=== PATIENT | male | born 1955 | race Caucasian/White ===

== ENCOUNTER 2017-03-06 07:57 | Inpatient (IN) | payer MEDICAID ==
[2017-03-06 08:38] LABS: % IMMATURE GRANULYOCYTES 0.6 % (0.0-1.1); ABSOLUTE IMMATURE GRANULOCYTES 0.03 10^3/uL (0.00-0.10); ABSOLUTE NRBC COUNT 0.02 10^3/uL (0-0.01); ADD DIFF? NO; ADD MORPH? NO; ADD SCAN? NO; ATYPICAL LYMPHOCYTE FLAG 0 (0-99); FRAGMENT RBC FLAG 0 (0-99); HEMATOCRIT 37.2 % (40.0-51.0); HEMOGLOBIN 12.2 g/dL (13.7-17.5); LEFT SHIFT FLG 0 (0-99); LIPEMIA HEMOLYSIS FLAG 80 (0-99); MEAN CELL HEMOGLOBIN CONCENTR. 32.8 g/dL (32.4-36.7); MEAN CELL VOLUME 100.5 fL (81.5-99.8); NRBC-AUTO% 0.4 % (0.0-0.2); PLATELET CLUMPS FLAG 0 (0-99); PLATELET COUNT 183 10^3/uL (150-400); RED CELL DISTRIBUTION WIDTH 15.9 % (11.5-15.2)
[2017-03-06] MEDS ORDERED: NS 1,000 ML IV ONE ×2 (08:40→10:40)
[2017-03-06 09:07] LABS: ALANINE AMINOTRANSFERASE 194 IU/L (21-72); ALKALINE PHOSPHATASE 144 IU/L (38-126); ANION GAP 25 mEq/L (8-16); ASPARTATE AMINOTRANSFERASE 404 IU/L (17-59); BILIRUBIN,TOTAL 1.8 mg/dL (0.1-1.4); CALCIUM 8.5 mg/dL (8.5-10.4); CARBON DIOXIDE 17 mEq/l (22-31); CHLORIDE 96 mEq/L (97-110); GLOMERULAR FILTRATION RATE 7; GLUCOSE 160 mg/dL (70-100); POTASSIUM 4.1 mEq/L (3.5-5.2); SODIUM 138 mEq/L (134-144); TOTAL PROTEIN 6.9 g/dL (6.3-8.2)
--- NOTE | 2017-03-06 09:08 | EDPHY ---
H & P Stated Complaint: diarrhea x 3 days, rectal itching Source: Patient Exam Limitations: No limitations - Personal History Current Tetanus/Diphtheria Vaccine: Unsure Current Tetanus Diphtheria and Acellular Pertussis (TDAP): Unsure Tetanus Vaccine Date: 2010 - Medical/Surgical History Hx Asthma: No Hx Chronic Respiratory Disease: No Hx Diabetes: Yes Hx Cardiac Disease: No Hx Renal Disease: No Hx Cirrhosis: No Hx Alcoholism: No Hx HIV/AIDS: No Hx Splenectomy or Spleen Trauma: No Other PMH: DM2 , HTN. etoh - Social History Smoking Status: Former smoker Time Seen by Provider: 03/06/17 08:26 HPI/ROS: CHIEF COMPLAINT: diarrhea HISTORY OF PRESENT ILLNESS: 61-year-old male presents to the emergency department complaining of rectal itching and diarrhea for the past 4 days up to 20 episodes daily. Patient reports this started with vomiting. Patient reports he feels a rectal throbbing, has a bowel movement which is diarrhea and feels much better temporarily. Patient reports great relief with wiping with toilet paper as he has so much itching. Patient unsure of history hemorrhoids. He reports his diarrhea is brown and sometimes black. No bright red blood. Patient denies chest pain or shortness of breath, no lightheadedness or dizziness. Patient admits to drinking almost 1 L of rum daily, last drink was last night. Patient reports he is taking his medication as prescribed, he is not taking NSAIDs or antiplatelets. He tripped and fell in his kitchen 5 days ago and has a bruise to his left leg. He denies head strike and no pain in this area. Patient reports he has been urinating more than usual. REVIEW OF SYSTEMS: A comprehensive 10 point review of systems is otherwise negative aside from elements mentioned in the history of present illness. (Kya Parker) - Physical Exam Exam: Physical Exam Gen: Alert and Oriented, NAD HEENT: PERRL, moist mucous membranes NECK: no meningismus CV: regular rate and regular rhythm PULM: CTAB, no wheezes ABDOMEN: Obese, soft, mild diffuse tenderness to palpation, BS present BACK: No CVA tenderness NEURO: Neurologically grossly intact EXTREMITIES: Left hip with full range of motion SKIN: Large area of ecchymosis to left lateral hip, nontender to palpation PSYCH: answers questions appropriately. (Kya Parker) Constitutional: Initial Vital Signs Temperature (C) 37.0 C 03/06/17 08:06 Heart Rate 128 H 03/06/17 08:06 Respiratory Rate 16 03/06/17 08:06 Blood Pressure 124/87 H 03/06/17 08:06 O2 Sat (%) 98 03/06/17 08:06 O2 Delivery Mode Room Air Allergies/Adverse Reactions: caffeine Allergy (Verified 07/06/14 12:14) Home Medications: Medication Instructions Recorded Losartan/Hydrochlorothiazide 1 tab PO DAILY 07/06/14 [Hyzaar 100-25 Tablet] Atorvastatin Calcium [Lipitor 40 40 mg PO DAILY 03/06/17 mg (*)] Cholecalciferol Vit D3 [Vitamin D3 1,000 units PO DAILY 03/06/17 (*)] metFORMIN HCL [Glucophage 500 mg 500 mg PO BIDMEAL 03/06/17 (*)] Medical Decision Making ED Course/Re-evaluation: IV established, CBC, chemistry panel, urinalysis obtained. CBC shows a normal white blood cell count, H&H are 12.2 and 37.2, chemistry panel shows a creatinine of 8.1 with elevated LFTs and lipase of 1400. Patient is given 1 L of normal saline. Patient was able to urinate 50 mL as of dark urine, Jones catheter was placed with minimal postvoid residual. Patient is given a 2nd L of normal saline. He will be admitted to hospitalist for his diarrhea and acute kidney injury. I have spoken with Dr. Sean Frye who accepts this admission. (Kya Parker) Other Provider: Independent physician documentation I evaluated and participated in the management of the patient. I also evaluated the patient independently. My co-signature indicates that I have reviewed this chart and I agree with the findings and plan of care as documented. My personal H&P findings include: The patient presents to the ED with several days of diarrhea. The patient does have a history of sporadic binge drinking. He has been drinking heavily for the past several days. PHYSICAL EXAMINATION General Appearance: Alert, no distress Eyes: Pupils equal and round no pallor or injection ENT, Mouth: Mucous membranes moist Respiratory: There are no retractions, lungs are clear to auscultation Cardiovascular: Regular rate and rhythm Gastrointestinal: Abdomen is soft and nontender, no masses, bowel sounds normal Neurological: A&O, normal motor function, normal sensory exam, normal cranial nerves Skin: Bruising noted to left hip, normal range of motion Musculoskeletal: Neck is supple nontender Extremities: symmetrical, full range of motion Psychiatric: Patient is oriented X 3, there is no agitation The patient presents to the ED with acute renal failure from presumed GI losses , ARB use and his history of diabetes. The patient had a Jones catheter placed. He had no significant urinary retention. The patient received 2 L of normal saline. The patient will require admission to the hospitalist service. The patient will be admitted to a monitored bed this evening. He was evaluated by Dr. Sean Frye in the emergency department. (Sorin Martin) - Data Points Laboratory Results: Laboratory Results 03/06/17 08:30 03/06/17 08:30 03/06/17 03/06/17 03/06/17 09:55 09: 08:30 WBC RBC Hgb Hct MCV MCH MCHC RDW Plt Count MPV Neut % (Auto) Lymph % (Auto) Arthur % (Auto) Eos % (Auto) Baso % (Auto) Nucleat RBC Rel Count Absolute Neuts (auto) Absolute Lymphs (auto) Absolute Monos (auto) Absolute Eos (auto) Absolute Basos (auto) Absolute Nucleated RBC Immature Gran % Immature Gran # Sodium Potassium Chloride Carbon Dioxide Anion Gap BUN Creatinine Estimated GFR Glucose Calcium Total Bilirubin Conjugated Bilirubin Unconjugated Bilirubin AST ALT Alkaline Phosphatase Total Protein Albumin Lipase Urine Color PADMINI Urine Appearance MODERATELY TURBID Urine pH 5.0 (5.0-7.5) Ur Specific [place] 1.023 (1.002-1.030) Urine Protein 3+ H (NEGATIVE) Urine Ketones TRACE H (NEGATIVE) Urine Blood 1+ H (NEGATIVE) Urine Nitrate NEGATIVE (NEGATIVE) Urine Bilirubin POSITIVE H (NEGATIVE) Urine Urobilinogen NEGATIVE EU EU (0.2-1.0) Ur Leukocyte Esterase NEGATIVE (NEGATIVE) Urine RBC NONE SEEN /hpf /hpf (0-3) Urine WBC 1-3 /hpf /hpf (0-3) Ur Epithelial Cells TRACE /lpf /lpf (NONE-1+) Hyaline Casts 25-50 /lpf H /lpf (0-1) Granular Casts 15-25 /lpf H /lpf (0-1) Urine Mucus TRACE /lpf /lpf (NONE-1+) Urine Glucose NEGATIVE (NEGATIVE) Stool Concentration TNP Stool Occult Bld Scrn POSITIVE H (NEGATIVE) Stool Ova & Parasites TNP Parasite Trichrome TNP Direct Microscop Exam TNP 03/06/17 03/06/17 08:30 08:30 WBC 4.71 10^3/uL 10^3/uL (3.80-9.50) RBC 3.70 10^6/uL L 10^6/uL (4.40-6.38) Hgb 12.2 g/dL L g/dL (13.7-17.5) Hct 37.2 % L % (40.0-51.0) MCV 100.5 fL H fL (81.5-99.8) MCH 33.0 pg pg (27.9-34.1) MCHC 32.8 g/dL g/dL (32.4-36.7) RDW 15.9 % H % (11.5-15.2) Plt Count 183 10^3/uL 10^3/uL (150-400) MPV 10.0 fL fL (8.7-11.7) Neut % (Auto) 53.0 % % (39.3-74.2) Lymph % (Auto) 31.6 % % (15.0-45.0) Arthur % (Auto) 13.6 % H % (4.5-13.0) Eos % (Auto) 0.6 % % (0.6-7.6) Baso % (Auto) 0.6 % % (0.3-1.7) Nucleat RBC Rel Count 0.4 % H % (0.0-0.2) Absolute Neuts (auto) 2.49 10^3/uL 10^3/uL (1.70-6.50) Absolute Lymphs (auto) 1.49 10^3/uL 10^3/uL (1.00-3.00) Absolute Monos (auto) 0.64 10^3/uL 10^3/uL (0.30-0.80) Absolute Eos (auto) 0.03 10^3/uL 10^3/uL (0.03-0.40) Absolute Basos (auto) 0.03 10^3/uL 10^3/uL (0.02-0.10) Absolute Nucleated RBC 0.02 10^3/uL H 10^3/uL (0-0.01) Immature Gran % 0.6 % % (0.0-1.1) Immature Gran # 0.03 10^3/uL 10^3/uL (0.00-0.10) Sodium 138 mEq/L mEq/L (134-144) Potassium 4.1 mEq/L mEq/L (3.5-5.2) Chloride 96 mEq/L L mEq/L (97-110) Carbon Dioxide 17 mEq/l L mEq/l (22-31) Anion Gap 25 mEq/L H mEq/L (8-16) BUN 62 mg/dL H mg/dL (7-23) Creatinine 8.1 mg/dL H* mg/dL (0.7-1.3) Estimated GFR 7 Glucose 160 mg/dL H mg/dL (70-100) Calcium 8.5 mg/dL mg/dL (8.5-10.4) Total Bilirubin 1.8 mg/dL H mg/dL (0.1-1.4) Conjugated Bilirubin 1.3 mg/dL H mg/dL (0.0-0.5) Unconjugated Bilirubin 0.5 mg/dL mg/dL (0.0-1.1) AST 404 IU/L H IU/L (17-59) ALT 194 IU/L H IU/L (21-72) Alkaline Phosphatase 144 IU/L H IU/L (38-126) Total Protein 6.9 g/dL g/dL (6.3-8.2) Albumin 4.0 g/dL g/dL (3.5-5.0) Lipase 1304.0 IU/L H IU/L (23-300) Urine Color Urine Appearance Urine pH Ur Specific [place] Urine Protein Urine Ketones Urine Blood Urine Nitrate Urine Bilirubin Urine Urobilinogen Ur Leukocyte Esterase Urine RBC Urine WBC Ur Epithelial Cells Hyaline Casts Granular Casts Urine Mucus Urine Glucose Stool Concentration Stool Occult Bld Scrn Stool Ova & Parasites Parasite Trichrome Direct Microscop Exam Microbiology Results: MICROBIOLOGY 03/06/17 09:17 Stool Gastrointestinal Tract Panel (PCR) - Final No Organism Detected Medications Given: Discontinued Medications Sodium Chloride (Ns) 1,000 mls @ 0 mls/hr IV ONCE ONE PRN Reason: Wide Open Stop: 03/06/17 08:41 Last Admin: 03/06/17 09:04 Dose: 1,000 mls Sodium Chloride (Ns) 1,000 mls @ 0 mls/hr IV ONCE ONE PRN Reason: Wide Open Stop: 03/06/17 10:41 Last Admin: 03/06/17 10:44 Dose: 1,000 mls Lidocaine (Uroject Lidocaine 2% Jelly) 20 ml UR EDNOW ONE Stop: 03/06/17 09:59 Last Admin: 03/06/17 09:59 Dose: 20 ml Lorazepam (Ativan Injection) 1 mg IVP EDNOW ONE Stop: 03/06/17 09:13 Last Admin: 03/06/17 09:23 Dose: 1 mg Lorazepam (Ativan Injection) 1 mg IVP ONCE ONE Stop: 03/06/17 11:48 Last Admin: 03/06/17 13:27 Dose: 1 mg Departure - Departure Disposition: [facility] Inpatient Acute Clinical Impression: SOLEDAD (acute kidney injury), Dehydration, Alcohol abuse Diarrhea Qualifiers: Diarrhea type: unspecified type Qualified Code(s): R19.7 - Diarrhea, unspecified Condition: Fair
[2017-03-06] MEDS ORDERED: LORazepam 2 MG/ML INJ IVP ONE ×2 (09:12→11:47)
[2017-03-06 09:18] LABS: BILIRUBIN-CONJUGATED 1.3 mg/dL (0.0-0.5); BILIRUBIN-UNCONJUGATED 0.5 mg/dL (0.0-1.1)
[2017-03-06 09:22] LABS: CREATININE 8.1 mg/dL (0.7-1.3)
[2017-03-06] MEDS ORDERED: LIDOCAINE 2% JELLY 20 ML (UROJECT) UR ONE (09:58)
[2017-03-06 10:36] LABS: COLOR AMBER; LEUKOCYTE ESTERASE,URINE NEGATIVE (NEGATIVE); NITRITE,URINE NEGATIVE (NEGATIVE)
[2017-03-06 10:39] LABS: GRANULAR CASTS 15-25 /lpf (0-1); HYALINE CASTS 25-50 /lpf (0-1); MUCUS TRACE /lpf (NONE-1+); RBC,URINE NONE SEEN /hpf (0-3)
--- NOTE | 2017-03-06 10:40 | CPEKG ---
Heart Rate: 119 RR Interval: 504 P-R Interval: 136 QRSD Interval: 78 QT Interval: 312 QTC Interval: 439 P [place]: 31 QRS [place]: 13 T Wave [place]: 18 EKG Severity - OTHERWISE NORMAL ECG - EKG Impression: SINUS TACHYCARDIA Electronically Signed By: Gavin Patel 08-Mar-2017 08:06:29
[2017-03-06] MEDS ORDERED: LORazepam 2 MG/ML INJ ONE (11:37)
[2017-03-06] MEDS ORDERED: TEMAZEPAM 15 MG CAP PO PRN (11:48)
[2017-03-06] MEDS ORDERED: ACETAMINOPHEN 325 MG TAB PO PRN (11:48)
[2017-03-06] MEDS ORDERED: ONDANSETRON 4 MG/2 ML VIAL IVP PRN (11:48)
[2017-03-06] MEDS ORDERED: ONDANSETRON DISINTEGRATING 4 MG TAB PO PRN (11:48)
[2017-03-06] MEDS ORDERED: D50W 25 GM/50 ML SYR IVP PRN (11:50)
--- NOTE | 2017-03-06 12:30 | GHP ---
[f rep st] HISTORY AND PHYSICAL DATE OF ADMISSION: 03/06/2017 HISTORY OF PRESENT ILLNESS: The patient is a pleasant 61-year-old gentleman with a history of alcoh olism, diabetes and hypertension who presents with ongoing diarrhea. He has had diarrhea for about 4 days. It started as vomiting. He has had diarrhea upwards of 20 bowel movements a day. He has h ad no fever or chills, no abdominal pain. Maybe some of it has been black. He has a lot of perirec zari itching, and he has been excoriating that area. He continues to drink alcohol intermittently, a lthough he is somewhat of an obtuse historian when it comes to this. I have taken care of the patie nt on previous episodes, and this is similar to the way he has been in the past. No recent antibiotics. REVIEW OF SYSTEMS: Complete 10-point review of systems conducted. Negative except as noted in the HPI. PAST MEDICAL HISTORY: 1. Alcoholism. 2. History of alcoholic hepatitis. 3. Hypertension. 4. Depression. 5. Diabetes, on metformin. SOCIAL HISTORY: He lives alone. Unemployed and has been for a long period of time. His family sup ports him financially. It sounds like he drinks fairly heavy alcohol. No tobacco. FAMILY HISTORY: Mother has chronic illness of unknown etiology. Living in a fci. Father about 4 years ago. ALLERGIES: Caffeine. MEDICATIONS: Metformin, losartan/hydrochlorothiazide, vitamin D3, and atorvastatin. PHYSICAL EXAM: VITAL SIGNS: Temp 36.7, blood pressure 156/67, pulse 112, breathing 18 times a alethea te, 92% on room air. GENERAL: Pale, in no acute distress. HEENT: Sclerae anicteric. Oropharynx clear. Mucous membranes are moist. NECK: Supple without lymphadenopathy or JVD. LUNGS: Clear to auscultation bilaterally. HEART: Tachycardic. S1, S2. ABDOMEN: Soft, nontender, nondistended. There is no rebound or guarding. There is no ascites. LOWER EXTREMITIES: Trace edema bilaterally . Calves are nontender. SKIN: Without rash. NEUROLOGIC: Grossly nonfocal. LABS: White count 4.7, hematocrit 37.2, his baseline is about 50, platelets are 183,000. Sodium 13 8, potassium 4.1, chloride 96, bicarb 17, BUN 25, creatinine 8.1, glucose 160. Bilirubin is 1.8. A ST 44, ALT 194, alkaline phosphatase 144, lipase is elevated at 1304. UA shows 3+ protein, trace ke tones, 25-50 casts. Stool occult blood is positive. Gastrin GI tract panel is pending. EKG shows sinus tach at 1:19 am with normal axis and intervals. There are no ST or T-wave changes. I have discussed the case with Kya Parker NP of the emergency department. ASSESSMENT AND PLAN: 61-year-old gentleman with alcoholism presents with likely viral gastroenterit is, volume depletion and acute kidney injury. 1. Acute kidney injury. I suspect this is volume depletion in this setting and therefore pre renal injury in the setting of COLT inhibitor and diuretic therapy. We will hold those and will continue volume resuscitation. I suspect it will take a number of days to come down. At this point in time, I do not suspect an inflammatory process such as glomerular nephritis. We will follow. 2. Viral gastroenteritis. This sounds somewhat severe in nature. We will await GI panel to make s ure he does not have C. difficile as there is some community-acquired C. difficile out there. If no t, will provide Imodium or some other antidiarrheal medicine. 3. Alcoholism. I suspect there may be some mild withdrawal contributing to his presentation. I mc ve put him on scheduled clorazepate 10 t.i.d. Again, it is difficult to know how much he drinks, bu t his family is present and corroborates that he does drink daily. 4. Prophylaxis. SCDs. Will hold on pharmacologic DVT prophylaxis for the time being. 5. Diabetes. Will hold his metformin. Low-dose insulin sliding scale. 6. Disposition: PT, OT evaluation. Inpatient. /[id number]/MODL
[2017-03-06 12:37] LABS: HEMOGLOBIN 11.4 g/dL (13.7-17.5)
[2017-03-06 12:49] LABS: ANION GAP 22 mEq/L (8-16); CALCIUM 7.8 mg/dL (8.5-10.4); CARBON DIOXIDE 17 mEq/l (22-31); CHLORIDE 100 mEq/L (97-110); GLOMERULAR FILTRATION RATE 7; GLUCOSE 157 mg/dL (70-100); POTASSIUM 4.2 mEq/L (3.5-5.2); SODIUM 139 mEq/L (134-144)
[2017-03-06 12:50] LABS: CREATININE 8.2 mg/dL (0.7-1.3)
[2017-03-06] MEDS: INSULIN LISPRO 100 UNIT/ML SC SCH ×2 (13:28→18:13)
[2017-03-06] MEDS: NS 1,000 ML IV SCH (13:28)
[2017-03-06] MEDS: LOPERAMIDE HCL 2 MG CAP PO PRN ×2 (14:46→21:39)
[2017-03-07 07:50] LABS: ABSOLUTE IMMATURE GRANULOCYTES 0.03 10^3/uL (0.00-0.10); ABSOLUTE NRBC COUNT 0.02 10^3/uL (0-0.01); ADD DIFF? NO; ADD MORPH? NO; ADD SCAN? NO; ATYPICAL LYMPHOCYTE FLAG 0 (0-99); FRAGMENT RBC FLAG 0 (0-99); HEMOGLOBIN 10.1 g/dL (13.7-17.5); LEFT SHIFT FLG 20 (0-99); LIPEMIA HEMOLYSIS FLAG 80 (0-99); MEAN CELL HEMOGLOBIN 32.6 pg (27.9-34.1); MEAN CELL HEMOGLOBIN CONCENTR. 31.6 g/dL (32.4-36.7); MEAN CELL VOLUME 103.2 fL (81.5-99.8); MEAN PLATELET VOLUME 9.8 fL (8.7-11.7); NRBC-AUTO% 0.7 % (0.0-0.2); PLATELET CLUMPS FLAG 0 (0-99); PLATELET COUNT 158 10^3/uL (150-400); RED CELL DISTRIBUTION WIDTH 16.1 % (11.5-15.2)
[2017-03-07 08:01] LABS: INR 1.13 (0.83-1.16); PROTIME(PATIENT) 14.4 SEC (12.0-15.0)
[2017-03-07 08:14] LABS: ANION GAP 16 mEq/L (8-16); CALCIUM 7.3 mg/dL (8.5-10.4); CARBON DIOXIDE 19 mEq/l (22-31); CHLORIDE 106 mEq/L (97-110); CREATININE 7.1 mg/dL (0.7-1.3); GLOMERULAR FILTRATION RATE 8; GLUCOSE 160 mg/dL (70-100); POTASSIUM 3.6 mEq/L (3.5-5.2); SODIUM 141 mEq/L (134-144)
[2017-03-07] MEDS: INSULIN LISPRO 100 UNIT/ML SC SCH ×3 (08:14→17:39)
[2017-03-07] MEDS: NS 1,000 ML IV SCH ×3 (10:00→20:55)
--- NOTE | 2017-03-07 11:03 | HOSPPROG ---
Hospitalist Progress Note Assessment/Plan: 61 yo m w htn, dm, alcoholism here w SOLEDAD, likely viral gastroenteritis SOLEDAD: pre renal w resultant ATN suspect to improve in coming days given slow improvement, will check renal u/s and urine lytes UA c/w casts and ATN no indication for HD viral gastroenteritis: stool studies neg, including cdiff prn imodium reg diet alcoholism: unclear in in withdrawal, tachycardia noted minimal tremor, no tongue fasciculations continue scheduled librium liver injury: suspect alcoholic hepatitis repeat labs in AM rec abstinence patient expressing desire for abstinence, possibly elevated lipase: denies abd pain follow OK to eat proph: sc heparin Subjective: case discussed in [facility] of nephrology. cr improved. diarrhea improved Objective: Vital Signs Temp Pulse Resp BP Pulse Ox 36.7 C 104 H 14 128/84 H 95 03/07/17 07:40 03/07/17 07:40 03/07/17 07:40 03/07/17 07:40 03/07/17 07:40 Laboratory Results 03/07/17 05:09 03/07/17 05:09 03/06/17 03/07/17 03/08/17 05:59 05:59 05:59 Output Total 75 Balance -75 PT 14.4 SEC (12.0-15.0) 03/07/17 06:00 INR 1.13 (0.83-1.16) 03/07/17 06:00 - Physical Exam Constitutional: no apparent distress, appears nourished Eyes: PERRL, anicteric sclera Ears, Nose, Mouth, Throat: moist mucous membranes, hearing normal, other (no tongue fasciculations) Cardiovascular: regular rate and rhythym, no murmur, rub, or gallop, tachycardia Respiratory: no respiratory distress, no rales or rhonchi Gastrointestinal: normoactive bowel sounds, soft, non-tender abdomen, No guarding, No rebound Genitourinary: no bladder fullness, osborne in urethra Skin: warm, normal color Musculoskeletal: full muscle strength Neurologic: AAOx3, sensation intact bilaterally Psychiatric: interacting appropriately, not anxious ICD10 Worksheet Patient Problems: Problems Problem Status Onset Diarrhea Acute SOLEDAD (acute kidney injury) Acute Dehydration Acute Alcohol abuse Acute
[2017-03-07] MEDS: HEPARIN 5,000 UNIT/0.5 ML SYR SC SCH ×2 (13:40→22:09)
[2017-03-07] MEDS: LOPERAMIDE HCL 2 MG CAP PO PRN (13:40)
[2017-03-08 05:36] LABS: ALANINE AMINOTRANSFERASE 130 IU/L (21-72); ALBUMIN 2.9 g/dL (3.5-5.0); ALKALINE PHOSPHATASE 110 IU/L (38-126); ANION GAP 11 mEq/L (8-16); ASPARTATE AMINOTRANSFERASE 241 IU/L (17-59); BILIRUBIN,TOTAL 1.3 mg/dL (0.1-1.4); BILIRUBIN-CONJUGATED 0.9 mg/dL (0.0-0.5); BILIRUBIN-UNCONJUGATED 0.4 mg/dL (0.0-1.1); CALCIUM 7.1 mg/dL (8.5-10.4); CARBON DIOXIDE 22 mEq/l (22-31); CHLORIDE 111 mEq/L (97-110); CREATININE 4.1 mg/dL (0.7-1.3); GLOMERULAR FILTRATION RATE 15; GLUCOSE 145 mg/dL (70-100); POTASSIUM 3.7 mEq/L (3.5-5.2); SODIUM 144 mEq/L (134-144); TOTAL PROTEIN 5.9 g/dL (6.3-8.2)
[2017-03-08] MEDS: INSULIN LISPRO 100 UNIT/ML SC SCH ×3 (07:58→17:03)
[2017-03-08] MEDS: HEPARIN 5,000 UNIT/0.5 ML SYR SC SCH ×3 (08:42→21:08)
[2017-03-08] MEDS: NS 1,000 ML IV SCH ×2 (11:03→18:11)
[2017-03-08] MEDS: LOPERAMIDE HCL 2 MG CAP PO PRN ×2 (11:03→15:27)
--- NOTE | 2017-03-08 13:05 | HOSPPROG ---
Hospitalist Progress Note Assessment/Plan: 61 yo m w htn, dm, alcoholism here w SOLEDAD, likely viral gastroenteritis SOLEDAD: pre renal w resultant ATN suspect to improve in coming days ultrasound unremarkable improving continue IVF support add'l day viral gastroenteritis: stool studies neg, including cdiff prn imodium reg diet alcoholism: unclear in in withdrawal, tachycardia noted minimal tremor, no tongue fasciculations continue scheduled librium liver injury: suspect alcoholic hepatitis repeat labs improved rec abstinence patient expressing desire for abstinence, possibly elevated lipase: denies abd pain follow OK to eat proph: sc heparin Subjective: cr much improved Objective: Vital Signs Temp Pulse Resp BP Pulse Ox 36.7 C 88 20 140/87 H 95 03/08/17 07:36 03/08/17 09:00 03/08/17 07:36 03/08/17 09:00 03/08/17 07:36 Laboratory Results 03/07/17 05:09 03/08/17 05:04 03/07/17 03/08/17 03/09/17 05:59 05:59 05:59 Intake Total 4185 250 Output Total 75 1400 300 Balance -75 2785 -50 PT 14.4 SEC (12.0-15.0) 03/07/17 06:00 INR 1.13 (0.83-1.16) 03/07/17 06:00 - Physical Exam Constitutional: no apparent distress, appears nourished Eyes: PERRL, anicteric sclera Ears, Nose, Mouth, Throat: moist mucous membranes, hearing normal Cardiovascular: regular rate and rhythym, no murmur, rub, or gallop Respiratory: no respiratory distress, no rales or rhonchi, clear to auscultation Gastrointestinal: normoactive bowel sounds, soft, non-tender abdomen Genitourinary: no bladder fullness, osborne in urethra Skin: warm, normal color Musculoskeletal: full muscle strength, no muscle tenderness Neurologic: AAOx3, sensation intact bilaterally ICD10 Worksheet Patient Problems: Problems Problem Status Onset SOLEDAD (acute kidney injury) Acute Alcohol abuse Acute Dehydration Acute Diarrhea Acute
[2017-03-09] MEDS: NS 1,000 ML IV SCH (01:59)
[2017-03-09] MEDS: HEPARIN 5,000 UNIT/0.5 ML SYR SC SCH ×3 (05:51→20:56)
[2017-03-09] MEDS ORDERED: INSULIN LISPRO 100 UNIT/ML SC ONE (08:52)
[2017-03-09 09:14] LABS: ANION GAP 14 mEq/L (8-16); CALCIUM 7.5 mg/dL (8.5-10.4); CARBON DIOXIDE 23 mEq/l (22-31); CHLORIDE 112 mEq/L (97-110); CREATININE 2.7 mg/dL (0.7-1.3); GLOMERULAR FILTRATION RATE 24; GLUCOSE 157 mg/dL (70-100); POTASSIUM 3.2 mEq/L (3.5-5.2); SODIUM 149 mEq/L (134-144)
[2017-03-09] MEDS: INSULIN LISPRO 100 UNIT/ML SC SCH ×3 (09:23→18:31)
--- NOTE | 2017-03-09 12:38 | HOSPPROG ---
Hospitalist Progress Note Assessment/Plan: 61 yo m w htn, dm, alcoholism here w SOLEDAD, likely viral gastroenteritis SOLEDAD: pre renal w resultant ATN suspect to improve in coming days ultrasound unremarkable improving dc IVF trending to baseline htn: restart meds on dc viral gastroenteritis: stool studies neg, including cdiff prn imodium reg diet alcoholism: unclear in in withdrawal, tachycardia noted minimal tremor, no tongue fasciculations continue scheduled librium liver injury: suspect alcoholic hepatitis repeat labs improved rec abstinence patient expressing desire for abstinence, possibly elevated lipase: denies abd pain follow OK to eat proph: sc heparin dispo: medically ready to leave tomorrow; [facility] [place] basically wathcing TV and drinking alcohol all day. family/CM pursuing options for dc Subjective: 35' spent on case, including 25' face to face w patient and brother Objective: Vital Signs Temp Pulse Resp BP Pulse Ox 36.7 C 94 20 148/98 H 97 03/09/17 08:00 03/09/17 08:00 03/09/17 08:00 03/09/17 08:00 03/09/17 08:00 Laboratory Results 03/07/17 05:09 03/09/17 08:47 03/08/17 03/09/17 03/10/17 05:59 05:59 05:59 Intake Total 4185 1905 Output Total 1400 1300 Balance 2785 605 PT 14.4 SEC (12.0-15.0) 03/07/17 06:00 INR 1.13 (0.83-1.16) 03/07/17 06:00 - Physical Exam Constitutional: no apparent distress, appears nourished Eyes: PERRL, anicteric sclera Ears, Nose, Mouth, Throat: moist mucous membranes, hearing normal Cardiovascular: regular rate and rhythym, no murmur, rub, or gallop Respiratory: no respiratory distress, no rales or rhonchi Gastrointestinal: normoactive bowel sounds, soft, non-tender abdomen Genitourinary: no bladder fullness, No osborne in urethra Skin: warm, normal color Musculoskeletal: full muscle strength, no muscle tenderness Neurologic: AAOx3 ICD10 Worksheet Patient Problems: Problems Problem Status Onset SOLEDAD (acute kidney injury) Acute Alcohol abuse Acute Dehydration Acute Diarrhea Acute
[2017-03-10] MEDS: HEPARIN 5,000 UNIT/0.5 ML SYR SC SCH (05:31)
[2017-03-10 05:45] LABS: ANION GAP 15 mEq/L (8-16); CALCIUM 7.3 mg/dL (8.5-10.4); CARBON DIOXIDE 22 mEq/l (22-31); CHLORIDE 112 mEq/L (97-110); CREATININE 2.2 mg/dL (0.7-1.3); GLOMERULAR FILTRATION RATE 31; GLUCOSE 158 mg/dL (70-100); POTASSIUM 3.2 mEq/L (3.5-5.2); SODIUM 149 mEq/L (134-144)
[2017-03-10] MEDS: INSULIN LISPRO 100 UNIT/ML SC SCH ×2 (07:42→13:43)
[2017-03-10 08:29] VITALS: BP 131/85; PULSE 101; RESP 18; TEMP 98.7; O2SAT 96
--- NOTE | 2017-03-10 09:27 | HOSPPROG ---
Hospitalist Progress Note Assessment/Plan: 61 yo m w htn, dm, alcoholism here w SOLEDAD, likely viral gastroenteritis SOLEDAD: pre renal w resultant ATN suspect to improve in coming days ultrasound unremarkable improving dc IVF trending to baseline htn: restart meds on dc will transition from losartan/hctz to norvasc given ckd viral gastroenteritis: stool studies neg, including cdiff prn imodium reg diet alcoholism: unclear in in withdrawal, tachycardia noted minimal tremor, no tongue fasciculations continue scheduled librium liver injury: suspect alcoholic hepatitis repeat labs improved rec abstinence patient expressing desire for abstinence, possibly elevated lipase: denies abd pain follow OK to eat proph: sc heparin dispo: home today > 30 minutes he is doing poorly in currrent situation but too functional for SNF doesnt wish for inpatient alcohol rehab family has resources; will discuss w brother Subjective: ready for dc Objective: Vital Signs Temp Pulse Resp BP Pulse Ox 37.1 C 101 H 18 131/85 H 96 03/10/17 08:00 03/10/17 08:00 03/10/17 08:00 03/10/17 08:00 03/10/17 08:00 Laboratory Results 03/07/17 05:09 03/10/17 04:53 03/09/17 03/10/17 03/11/17 05:59 05:59 05:59 Intake Total 1905 1000 Output Total 1300 1300 Balance 605 -300 PT 14.4 SEC (12.0-15.0) 03/07/17 06:00 INR 1.13 (0.83-1.16) 03/07/17 06:00 - Physical Exam Constitutional: no apparent distress, appears nourished Eyes: PERRL, anicteric sclera Ears, Nose, Mouth, Throat: moist mucous membranes, hearing normal Cardiovascular: regular rate and rhythym, no murmur, rub, or gallop Respiratory: no respiratory distress, no rales or rhonchi Gastrointestinal: normoactive bowel sounds, soft, non-tender abdomen Genitourinary: no bladder fullness, No osborne in urethra Skin: warm, normal color Musculoskeletal: full muscle strength, no muscle tenderness Neurologic: AAOx3, sensation intact bilaterally ICD10 Worksheet Patient Problems: Problems Problem Status Onset SOLEDAD (acute kidney injury) Acute Alcohol abuse Acute Dehydration Acute Diarrhea Acute
--- NOTE | 2017-03-10 09:47 | GDS ---
[f rep st] DISCHARGE SUMMARY DISCHARGE DIAGNOSES: 1. Viral gastroenteritis. 2. Acute kidney injury with creatinine trending towards baseline, 8 on presentation. 3. Alcoholism. 4. Alcoholic hepatitis, improving. 5. Diabetes. HOSPITAL COURSE: Please see admission history and physical by Dr. Sean Frye. The patient pres ented with vomiting and diarrhea, dehydration. He had a creatinine of 8. He had a renal ultrasound showing no obstruction. He had urine lytes consistent with a prerenal state. He had casts consist ent with ATN from prolonged prerenal state from viral gastritis in the setting of ongoing use of hyd rochlorothiazide/losartan. He was volume resuscitated. His creatinine improved. He did not have a lcohol withdrawal while here, although, he is maintained on Librium. The patient was seen by physic al and occupational therapy, who felt he did not have any acute rehab needs. Although, the patient is doing somewhat poorly at home, basically spending time watching TV and drinking alcohol. His bro ther was present frequently and currently the plan is probably to discharge home. The patient is de clining inpatient alcohol rehab, which somebody in the family potentially has resources for, and the y will discuss any final options for discharge with the brother, prior to him leaving. /[id number]/MODL
--- NOTE | 2017-03-10 10:44 | PDIAF ---
- Diagnosis Diagnosis: renal failure (resolved) Code Status: Full Code - Medication Management Discharge Medications: Medications to Continue on Transfer Atorvastatin Calcium [Lipitor 40 mg (*)] 40 mg PO DAILY 03/06/17 [Last Taken 08:00] Cholecalciferol Vit D3 [Vitamin D3 (*)] 1,000 units PO DAILY 03/06/17 [Last Taken Unknown] metFORMIN HCL [Glucophage 500 mg (*)] 500 mg PO BIDMEAL 03/06/17 [Last Taken 21:00] amLODIPine BESYLATE [Norvasc 5 mg (*)] 5 mg PO DAILY #30 tab 03/10/17 [Last Taken Unknown] Discharge Medications: Refer to the Discharge Home Medication list for PRN reason. - Orders Services needed: Home Usp Care Face to Face: I certify that this patient was under my care and that I had the required [id number] encounter meeting the encounter requirements on the discharge day. My findings support the fact that the patient is homebound as defined in CMS Chapter 7 Medicare Benefits Manual 30.1.1, The condition of the patient is such that there exists a normal inability to leave home and consequently, leaving home would require a considerable and taxing effort. - Follow Up Care Current Providers and Referrals: NONE *PRIMARY CARE P,. [Unknown] - As per Instructions
--- NOTE | 2017-03-10 11:01 | PDIAF ---
- Diagnosis Diagnosis: renal failure (resolved) Code Status: Full Code - Medication Management Discharge Medications: Medications to Continue on Transfer Atorvastatin Calcium [Lipitor 40 mg (*)] 40 mg PO DAILY 03/06/17 [Last Taken 08:00] Cholecalciferol Vit D3 [Vitamin D3 (*)] 1,000 units PO DAILY 03/06/17 [Last Taken Unknown] metFORMIN HCL [Glucophage 500 mg (*)] 500 mg PO BIDMEAL 03/06/17 [Last Taken 21:00] amLODIPine BESYLATE [Norvasc 5 mg (*)] 5 mg PO DAILY #30 tab 03/10/17 [Last Taken Unknown] Discharge Medications: Refer to the Discharge Home Medication list for PRN reason. - Orders Services needed: Home Care, Registered Nurse, Physical Therapy, Occupational Therapy Home Care Face to Face: I certify that this patient was under my care and that I had the required [id number] encounter meeting the encounter requirements on the discharge day. My findings support the fact that the patient is homebound as defined in CMS Chapter 7 Medicare Benefits Manual 30.1.1, The condition of the patient is such that there exists a normal inability to leave home and consequently, leaving home would require a considerable and taxing effort. - Follow Up Care Current Providers and Referrals: NONE *PRIMARY CARE P,. [Unknown] - As per Instructions
== END 2017-03-10 12:27 | disposition home health service (06) | DRG 391 ==
LOC: F3E 11:43 → OBSVTOIN 11:48 → F3E 11:52
PROVIDERS: ADMIT Internal Medicine; ATTEND Internal Medicine
DX: A08.4 Viral intestinal infection, unspecified (principal); N17.0 Acute kidney failure with tubular necrosis; K70.10 Alcoholic hepatitis without ascites; F10.20 Alcohol dependence, uncomplicated; E11.9 Type 2 diabetes mellitus without complications; I10 Essential (primary) hypertension; Z87.891 Personal history of nicotine dependence
CPT/HCPCS: 96374; 97116-GP; 97161-GP; 97165-GO; 97530-GO; J1815; J2060

== ENCOUNTER 2018-05-18 11:29 | Observation (INO) | payer MEDICAID ==
[2018-05-18] MEDS ORDERED: LORazepam 2 MG/ML INJ IVP ONE ×2 (12:06→12:47)
[2018-05-18 12:12] LABS: PLATELET COUNT 184 10^3/uL (150-400)
--- NOTE | 2018-05-18 12:15 | EDPHY ---
H & P Stated Complaint: ETOH Time Seen by Provider: 05/18/18 11:57 HPI/ROS: CHIEF COMPLAINT: "Dr. Frye came to me in a dream last night night" HISTORY OF PRESENT ILLNESS: 62-year-old male history of alcoholic hepatitis, alcoholism, states that last night after drinking his usual amount of alcohol he did not feel that he "got as much pleasure out of the alcohol as usual" fell asleep and "had a dream that Dr Philip Frye came to me and told me to go to the ER." He has had no complaints of pain. Specifically no chest pain, no abdominal pain, no nausea, no vomiting,. No dyspnea. No palpitations. No headache. No suicidal homicidal ideation. No hallucination. Upon inquiring further about the patient's expectations in the ER he states that is primarily concerned because he is not getting as much pleasure out of alcohol as he normally does. PRIMARY CARE PROVIDER: REVIEW OF SYSTEMS: A ten point review of systems was performed and is negative with the exception of the items mentioned in the HPI PAST MEDICAL & SURGICAL HISTORY: Alj-irmznyw-jphklyuow diabetes. Alcoholism. Alcoholic hepatitis. SOCIAL HISTORY: Positive for daily alcohol use. Last drink last night. PHYSICAL EXAM (Prior to examination, patient consented to physical exam, hands were washed and my usual and customary physical exam procedures followed) 1) GENERAL: obese. well-nourished, alert and oriented. Appears to be in no acute distress. 2) HEAD: Normocephalic, atraumatic 3) HEENT: Pupils equal, round, reactive to light bilaterally. Sclera anicteric. Nasopharynx, oropharynx, clear, no lesions. Dry mucous membranes Ears bilaterally with normal tympanic membranes. 4) NECK: Full range of motion, no meningeal signs. 5) LUNGS: Clear auscultation bilaterally, no wheezes, no rhonchi, no retractions. 6) HEART: Regular rate and rhythm, no murmur, no heave, no gallop. 7) ABDOMEN: No guarding, no rebound, no focal tenderness, negative McBurney's, negative Witt's, negative Rovsing's, negative peritoneal sign, unable to elicit any abdominal pain 8) MUSCULOSKELETAL: Moving all extremities, no focal areas of tenderness, no obvious trauma. No peripheral edema or discoloration. 9) BACK: No CVA tenderness, no midline vertebral tenderness, no fluctuance, no step-off, no obvious trauma, no visual or palpable abnormality. 10) SKIN: No rash, no petechiae. 11) Psychiatric: Patient is oriented X 3, there is no agitation. DIFFERENTIAL DIAGNOSIS: In no particular include but limited to DKA, AKA, acute alcohol withdrawal - Personal History Current Tetanus/Diphtheria Vaccine: Yes Current Tetanus Diphtheria and Acellular Pertussis (TDAP): Yes Tetanus Vaccine Date: 2010 - Medical/Surgical History Hx Asthma: No Hx Chronic Respiratory Disease: No Hx Diabetes: Yes Hx Cardiac Disease: Yes Hx Renal Disease: No Hx Cirrhosis: No Hx Alcoholism: No Hx HIV/AIDS: No Hx Splenectomy or Spleen Trauma: No Other PMH: DM2 , HTN. etoh - Social History Smoking Status: Former smoker Constitutional: Initial Vital Signs Temperature (C) 36.6 C 05/18/18 11:33 Heart Rate 128 H 05/18/18 11:33 Respiratory Rate 16 05/18/18 11:33 Blood Pressure 177/122 H 05/18/18 11:33 O2 Sat (%) 95 05/18/18 11:33 O2 Delivery Mode Room Air Allergies/Adverse Reactions: caffeine Allergy (Verified 05/18/18 13:38) Other-Enter Comments Home Medications: Medication Instructions Recorded Cholecalciferol Vit D3 [Vitamin D3 1,000 units PO DAILY 03/06/17 (*)] metFORMIN HCL [Glucophage 500 mg 500 mg PO BIDMEAL 03/06/17 (*)] amLODIPine BESYLATE [Norvasc 5 mg 5 mg PO DAILY #30 tab 03/10/17 (*)] Medical Decision Making ED Course/Re-evaluation: 12:14 p.m.: Old medical records reviewed. Patient is tachycardic. We discussed my differential diagnosis. Will administer IV fluids, IV Ativan and re-evaluate. I saw this patient independently based on established practice protocols. Care of patient under supervision of secondary supervising physician Dr Bee with whom I discussed case. 1:00 p.m.: Patient has been re-evaluated with serial examinations. He remains tachycardic after repeat doses of Ativan and IV fluids. We discussed laboratory studies which are notable for creatinine of 1.8, though he has had a creatinine as high as 8.1 in February 2017. Suspect he is volume depleted. Doubt DKA. Doubt delirium tremens. Doubt alcoholic hallucinosis. Will continue IV hydration. We discussed admission versus is discharged home. Patient does not feel safe being discharged home. 1:10 p.m.: Consultation with hospitalist Sole, admit observation to Dr. Presley 2:14 p.m.: I was informed by the nursing staff at this time the patient repeatedly been getting out of the bed while in room 3. He had gone to the sink and was urinating in the sink he sustained a non syncopal fall, impacting his left frontal region. I re-evaluated the patient at this time. He has a left frontal abrasion with no hematoma, no depression, no evidence of basilar skull fracture, no loss of consciousness, no amnesia. I do not think that imaging studies are currently indicated. 2:17 p.m. Hospitalist at bedside - Data Points Laboratory Results: Laboratory Results 05/18/18 11:50 05/18/18 11:50 05/18/18 05/18/18 11:50 11:50 WBC 6.48 10^3/uL 10^3/uL (3.80-9.50) RBC 5.86 10^6/uL 10^6/uL (4.40-6.38) Hgb 18.3 g/dL H g/dL (13.7-17.5) Hct 52.7 % H % (40.0-51.0) MCV 89.9 fL fL (81.5-99.8) MCH 31.2 pg pg (27.9-34.1) MCHC 34.7 g/dL g/dL (32.4-36.7) RDW 13.9 % % (11.5-15.2) Plt Count 184 10^3/uL 10^3/uL (150-400) MPV 9.9 fL fL (8.7-11.7) Neut % (Auto) 42.6 % % (39.3-74.2) Lymph % (Auto) 47.4 % H % (15.0-45.0) [place] % (Auto) 8.8 % % (4.5-13.0) Eos % (Auto) 0.2 % L % (0.6-7.6) Baso % (Auto) 0.8 % % (0.3-1.7) Nucleat RBC Rel Count 0.0 % % (0.0-0.2) Absolute Neuts (auto) 2.77 10^3/uL 10^3/uL (1.70-6.50) Absolute Lymphs (auto) 3.07 10^3/uL H 10^3/uL (1.00-3.00) Absolute Monos (auto) 0.57 10^3/uL 10^3/uL (0.30-0.80) Absolute Eos (auto) 0.01 10^3/uL L 10^3/uL (0.03-0.40) Absolute Basos (auto) 0.05 10^3/uL 10^3/uL (0.02-0.10) Absolute Nucleated RBC 0.00 10^3/uL 10^3/uL (0-0.01) Immature Gran % 0.2 % % (0.0-1.1) Immature Gran # 0.01 10^3/uL 10^3/uL (0.00-0.10) Sodium 143 mEq/L mEq/L (135-145) Potassium 5.2 mEq/L H mEq/L (3.3-5.0) Chloride 108 mEq/L mEq/L (97-110) Carbon Dioxide 21 mEq/l L mEq/l (22-31) Anion Gap 14 mEq/L mEq/L (8-16) BUN 32 mg/dL H mg/dL (7-23) Creatinine 1.8 mg/dL H mg/dL (0.7-1.3) Estimated GFR 39 Glucose 206 mg/dL H mg/dL (70-100) Calcium 8.3 mg/dL L mg/dL (8.5-10.4) Total Bilirubin 0.8 mg/dL mg/dL (0.1-1.4) Conjugated Bilirubin 0.1 mg/dL mg/dL (0.0-0.5) Unconjugated Bilirubin 0.7 mg/dL mg/dL (0.0-1.1) AST 80 IU/L H IU/L (17-59) ALT 73 IU/L H IU/L (21-72) Alkaline Phosphatase 79 IU/L IU/L (38-126) Total Protein 6.6 g/dL g/dL (6.3-8.2) Albumin 3.4 g/dL L g/dL (3.5-5.0) Lipase 185 IU/L IU/L (23-300) Beta-Hydroxybutyrate 0.07 mmol/L mmol/L (0.02-0.27) Ethyl Alcohol 287 mg/dL H mg/dL (0-10) Medications Given: Discontinued Medications Folic Acid (Folic Acid) 1 mg PO EDNOW ONE Stop: 05/18/18 12:48 Last Admin: 05/18/18 12:56 Dose: 1 mg Sodium Chloride (Ns) 1,000 mls @ 0 mls/hr IV ONCE ONE PRN Reason: Wide Open Stop: 05/18/18 12:50 Last Admin: 05/18/18 12:57 Dose: 1,000 mls Lorazepam (Ativan Injection) 1 mg IVP EDNOW ONE Stop: 05/18/18 12:07 Last Admin: 05/18/18 12:21 Dose: 1 mg Lorazepam (Ativan Injection) 1 mg IVP EDNOW ONE Stop: 05/18/18 12:48 Last Admin: 05/18/18 12:57 Dose: 1 mg Thiamine HCl (Vitamin B-1) 100 mg PO EDNOW ONE Stop: 05/18/18 12:48 Last Admin: 05/18/18 12:56 Dose: 100 mg Departure - Departure [facility] Acute Clinical Impression: SOLEDAD (acute kidney injury), Dehydration, Alcohol abuse Condition: Fair
[2018-05-18] MEDS ORDERED: FOLIC ACID 1 MG TAB PO ONE (12:47)
[2018-05-18] MEDS ORDERED: THIAMINE HCL 100 MG TAB PO ONE (12:47)
[2018-05-18] MEDS ORDERED: NS 1,000 ML IV ONE (12:49)
--- NOTE | 2018-05-18 12:57 | CPEKG ---
Heart Rate: 113 RR Interval: 531 P-R Interval: 136 QRSD Interval: 88 QT Interval: 324 QTC Interval: 445 P Selden: 35 QRS [place]: 19 T Wave [place]: 56 EKG Severity - OTHERWISE NORMAL ECG - EKG Impression: SINUS TACHYCARDIA Electronically Signed By: Denzel Bee 18-May-2018 14:24:51
[2018-05-18] MEDS ORDERED: PROMETHAZINE HCL 25 MG/ML INJ IVP PRN (13:21)
[2018-05-18] MEDS ORDERED: ONDANSETRON 4 MG/2 ML VIAL IVP PRN (13:21)
[2018-05-18] MEDS ORDERED: PROMETHAZINE HCL 25 MG TAB PO PRN (13:21)
[2018-05-18] MEDS ORDERED: ACETAMINOPHEN 325 MG TAB PO PRN (13:21)
[2018-05-18] MEDS ORDERED: diphenhydrAMINE 25 MG CAP PO PRN (13:21)
[2018-05-18] MEDS ORDERED: ONDANSETRON DISINTEGRATING 4 MG TAB PO PRN (13:21)
[2018-05-18] MEDS ORDERED: LORazepam 1 MG TAB PO PRN (13:24)
[2018-05-18] MEDS ORDERED: LORazepam 2 MG/ML INJ IVP PRN (13:24)
[2018-05-18] MEDS ORDERED: NS 1,000 ML IV SCH (13:30)
[2018-05-18] MEDS: HEPARIN 5,000 UNIT/0.5 ML INJ SC SCH ×2 (17:21→21:07)
--- NOTE | 2018-05-18 18:43 | PDGENHP ---
History and Physical - Chief Complaint Acute hallucinations - History of Present Illness Primary care provider: Dr. Shrestha HPI: 62-year-old male presenting with acute hallucinations a characterized as vivid dreams including 1 of our hospitalist providers, indicating to the patient that he wanted him to go to the emergency department. The patient reports that it was not of visual hallucination but rather a premonition that included this provider (Dr. Philip Frye), suggesting that the patient go to the emergency department for his own well-being. The patient reports that this occurred in the context of an alcohol binge, and the patient reports that he was not receiving as much pleasure from alcohol consumption as he usually would. Consequently, the patient felt like he had an epiphany that he should discontinue his alcohol consumption because it was detrimental to his well being. The patient denies any other concomitant ingest since any reports that he has been taking his home medications as scheduled. These include an ARB, diuretic, metformin. The patient reports that his oral intake of other solids or non alcoholic liquids has been minimal, and he is unable to quantify his urine output or bowel output over the past several days. The patient reports that the onset of these loosened a shins was on the day of this presentation and the duration was persistent, until the patient presented to the emergency department. At the present time of this evaluation, the patient is no longer experiencing vivid dreams or hallucinations. When questioned when the last time the patient saw the aforementioned provider, the patient believes that it was approximately 1 month ago. Review of the chart indicates that it was 16 months ago. The patient reports that he experienced associated feeling of sensibility after experiencing his hallucination, as he believes that the aforementioned provider is a sensitive provider who has encouraged him to changes relationship with alcohol. History Information - Allergies/Home Medication List Allergies/Adverse Reactions: caffeine Allergy (Verified 05/18/18 13:38) Other-Enter Comments Home Medications: Cholecalciferol Vit D3 [Vitamin D3 (*)] 1,000 units PO DAILY 03/06/17 [Last Taken 05/17/18] metFORMIN HCL [Glucophage 500 mg (*)] 500 mg PO BIDMEAL 03/06/17 [Last Taken 18:00] I have personally reviewed and updated: family history, medical history, social history, surgical history - Past Medical History Additional medical history: Alcoholism. Alcohol induced hepatitis. Hypertension. Diabetes mellitus. Depression - Surgical History Additional surgical history: Arm surgery - Family History Additional family history: Mother with chronic medical condition comma in a correction - Social History Smoking Status: Former smoker Alcohol Use: Heavy Drug Use: None Additional social history: Patient reports he is independent in his ADLs, lives in his own home Review of Systems Review of Systems: ROS: 10pt was reviewed & negative except for what was stated in HPI & below Neurological: Reports: other (Vivid dreams and hallucinations) Physical Exam Physical Exam: Temp Pulse Resp BP Pulse Ox 36.5 C 112 H 16 160/108 H 95 05/18/18 15:10 05/18/18 15:10 05/18/18 15:10 05/18/18 15:10 05/18/18 15:10 Constitutional: no apparent distress, appears nourished, not in pain, chronically ill appearing, unkempt Eyes: anicteric sclera, EOMI, scleral injection Ears, Nose, Mouth, Throat: hearing normal, other (Tacky mucous membranes) Cardiovascular: tachycardia, edema (Trace bilateral lower extremity), No systolic murmur, No irregularly irregular Respiratory: no respiratory distress, no rales or rhonchi, clear to auscultation Gastrointestinal: normoactive bowel sounds, soft, non-tender abdomen, no palpable masses, No guarding, No distension Skin: warm, No abrasion, No rash Neurologic: sensation intact bilaterally, CN II-XII Intact, No AAOx3 (Alert awake oriented x2 to place and person, not to time), No weakness, No asterixes, No facial droop Psychiatric: not anxious, poor insight, poor memory, other (Ongoing experience of aforementioned hallucination, tangential but redirectable, cooperative), No agitated Lab Data & Imaging Review 05/18/18 11:50 05/18/18 11:50 WBC 6.48 10^3/uL (3.80-9.50) 05/18/18 11:50 RBC 5.86 10^6/uL (4.40-6.38) 05/18/18 11:50 Hgb 18.3 g/dL (13.7-17.5) H 05/18/18 11:50 Hct 52.7 % (40.0-51.0) H 05/18/18 11:50 MCV 89.9 fL (81.5-99.8) 05/18/18 11:50 MCH 31.2 pg (27.9-34.1) 05/18/18 11:50 MCHC 34.7 g/dL (32.4-36.7) 05/18/18 11:50 RDW 13.9 % (11.5-15.2) 05/18/18 11:50 Plt Count 184 10^3/uL (150-400) 05/18/18 11:50 MPV 9.9 fL (8.7-11.7) 05/18/18 11:50 Neut % (Auto) 42.6 % (39.3-74.2) 05/18/18 11:50 Lymph % (Auto) 47.4 % (15.0-45.0) H 05/18/18 11:50 [place] % (Auto) 8.8 % (4.5-13.0) 05/18/18 11:50 Eos % (Auto) 0.2 % (0.6-7.6) L 05/18/18 11:50 Baso % (Auto) 0.8 % (0.3-1.7) 05/18/18 11:50 Nucleat RBC Rel Count 0.0 % (0.0-0.2) 05/18/18 11:50 Absolute Neuts (auto) 2.77 10^3/uL (1.70-6.50) 05/18/18 11:50 Absolute Lymphs (auto) 3.07 10^3/uL (1.00-3.00) H 05/18/18 11:50 Absolute Monos (auto) 0.57 10^3/uL (0.30-0.80) 05/18/18 11:50 Absolute Eos (auto) 0.01 10^3/uL (0.03-0.40) L 05/18/18 11:50 Absolute Basos (auto) 0.05 10^3/uL (0.02-0.10) 05/18/18 11:50 Absolute Nucleated RBC 0.00 10^3/uL (0-0.01) 05/18/18 11:50 Immature Gran % 0.2 % (0.0-1.1) 05/18/18 11:50 Immature Gran # 0.01 10^3/uL (0.00-0.10) 05/18/18 11:50 Sodium 143 mEq/L (135-145) 05/18/18 11:50 Potassium 5.2 mEq/L (3.3-5.0) H 05/18/18 11:50 Chloride 108 mEq/L (97-110) 05/18/18 11:50 Carbon Dioxide 21 mEq/l (22-31) L 05/18/18 11:50 Anion Gap 14 mEq/L (8-16) 05/18/18 11:50 BUN 32 mg/dL (7-23) H 05/18/18 11:50 Creatinine 1.8 mg/dL (0.7-1.3) H 05/18/18 11:50 Estimated GFR 39 05/18/18 11:50 Glucose 206 mg/dL (70-100) H 05/18/18 11:50 Calcium 8.3 mg/dL (8.5-10.4) L 05/18/18 11:50 Total Bilirubin 0.8 mg/dL (0.1-1.4) 05/18/18 11:50 Conjugated Bilirubin 0.1 mg/dL (0.0-0.5) 05/18/18 11:50 Unconjugated Bilirubin 0.7 mg/dL (0.0-1.1) 05/18/18 11:50 AST 80 IU/L (17-59) H 05/18/18 11:50 ALT 73 IU/L (21-72) H 05/18/18 11:50 Alkaline Phosphatase 79 IU/L (38-126) 05/18/18 11:50 Total Protein 6.6 g/dL (6.3-8.2) 05/18/18 11:50 Albumin 3.4 g/dL (3.5-5.0) L 05/18/18 11:50 Lipase 185 IU/L (23-300) 05/18/18 11:50 Beta-Hydroxybutyrate 0.07 mmol/L (0.02-0.27) 05/18/18 11:50 Ethyl Alcohol 287 mg/dL (0-10) H 05/18/18 11:50 Visualized and Interpreted EKG results: Yes EKG Interpretation: Positive for: other (Sinus tachycardia with Q-wave in lead 3 ) Assessment & Plan Assessment: 62-year-old male presenting with acute encephalopathy in the setting of acute alcohol intoxication, acute kidney injury Plan: 1. Acute encephalopathy. New problem this provider, further workup indicated. Evidenced by global brain dysfunction characterized as hallucinations with poor insight, vivid dreams, disorientation, all of which are apparently unchanged from the patient's baseline, most likely secondary to a combination of the toxic effects of alcohol intoxication as well as the metabolic effects of acute kidney injury -treat underlying kidney injury -supportive care while patient detox from alcohol -BODY ARTIST cognitive evaluation tomorrow to gauge whether patient is safe to reside independently 2. Acute kidney injury. Most likely secondary to hypovolemia in the setting of heavy alcohol intake without any concomitant fluids or solids -continue IV normal saline at high rate, 200 cc/hour, monitor urine output, monitor serum creatinine level -reviewed outside records including 03/10/[address] Sean Frye, reports the patient experienced viral gastroenteritis with resultant acute kidney injury and creatinine level is high as eat, experiencing an element of acute tubular necrosis secondary to protracted hypovolemia and ongoing ARB/diuretic use -will hold patient's home ARB/diuretic and advised the patient to utilize an alternative method for blood pressure management moving forward given his high risk of recurrent renal injury as he is likely to relapse on alcohol after discharge 3. Alcoholism. Placed on CIWA protocol during this hospitalization as he is high risk for alcohol withdrawal -monitor transaminitis which is most likely secondary to the chronic effects of alcoholism 4. Hyperkalemia. Acute, most likely secondary to renal dysfunction, give IV fluids and repeat serum electrolytes -monitor on telemetry 5. Hypertension. Hold patient's home medication, initiate beta-janee given that a calcium channel janee would most likely exacerbated lower extremity edema and patient should be off of medications which could exacerbate renal impairment Diet. Regular Prophylaxis. High risk patient, heparin subcu Code. Full, interestingly enough, the patient requests Dr. Sean Frye to be his medical power of divorce attorney Disposition. Anticipated discharge is 05/19, pending stabilization of issues outlined above. Discussed patient's presentation with Dr. Denzel Bee, we both agree the patient warrants the above-mentioned treatment modalities as he is high risk of clinical worsening given his significant acute kidney injury.
[2018-05-18] MEDS ORDERED: METOPROLOL SUCCINATE XR 25 MG TAB PO SCH (19:00)
[2018-05-19 04:47] LABS: PLATELET COUNT 163 10^3/uL (150-400)
[2018-05-19 04:49] LABS: INR 1.03 (0.83-1.16); PROTIME(PATIENT) 13.7 SEC (12.0-15.0)
[2018-05-19] MEDS: HEPARIN 5,000 UNIT/0.5 ML INJ SC SCH (05:07)
[2018-05-19 08:07] VITALS: BP 171/110
[2018-05-19] MEDS: THIAMINE HCL 500 MG in NS 100 ML IV SCH ×2 (08:38→08:39)
[2018-05-19] MEDS ORDERED: MULTIVITAMINS 1 EACH TAB PO SCH (09:00)
[2018-05-19] MEDS ORDERED: METOPROLOL SUCCINATE XR 50 MG TAB PO SCH (09:00)
--- NOTE | 2018-05-19 09:26 | PDDCSUM ---
Discharge Summary Discharge Summary: DISCHARGE SUMMARY FOLLOW-UP ITEMS: Repeat TSH, creatinine BUN and lytes next week at PCP office Reassess alcohol consumption willingness to quit DATE OF ADMISSION: 05/18/2018 DATE OF DISCHARGE: 05/19/2018 DISCHARGE DIAGNOSES: 1. Acute encephalopathy 2. Acute kidney injury 3. Chronic alcoholism 4. Acute hyperkalemia 5. Chronic hypertension 6. Chronic diabetes mellitus CONSULTATIONS: None PROCEDURES / IMAGING: None CHIEF COMPLAINT: Acute hallucinations SUBJECTIVE: Patient is feeling well at time of discharge, he is requesting to be discharged at this time, he is no longer experiencing hallucinations PHYSICAL EXAM ON DISCHARGE: Systolic blood pressure is 140-170, heart rate 90, afebrile overnight, satting on room air, alert awake oriented times [address] not to date, concentration is 6/7, mildly tremulous but no asterixis, he has linear thought process, mild element of thought blocking but otherwise cooperative and following commands LABS ON DISCHARGE: Creatinine 1.5, potassium 4.7, serum sodium 140, TSH 11 HOSPITAL COURSE BY PROBLEM: The patient presented with acute hallucinations, vivid dreams, disorientation, poor insight, which were most likely secondary to a combination of the toxic effects of alcohol intoxication with blood alcohol level of 280 as well as the metabolic effects of acute kidney injury. The patient believes that he was experiencing vivid dreams and hallucinations involving a previous medical provider, instructing him to come to the emergency department. It was somewhat unclear as to whether the patient was interested in detoxing from alcohol or whether he was purely presenting to the emergency department because his hallucinations were instructing him to do so. Upon arrival, the patient was found to have acute kidney injury and hyperkalemia, both of which were treated with IV fluids as well as advancing his diet once tolerated. After receiving IV normal saline, his serum sodium level improved to 1.5 and the patient is eating and drinking safely, encouraged him to continue doing so and limiting alcohol from his diet entirely. Recommended that he repeat his labs next week with his primary care provider as an outpatient and that he also continue holding his metformin until he has had his labs repeated in that setting. He can continue his home amlodipine at this time. The TSH was also elevated but it is of unclear significance, as the patient is not particularly providing a reliable history and I am hesitant to initiate him on a new medication which could potentially be misused prior to being followed up in the outpatient setting by his primary care provider. Although I would have liked to have kept the patient in the hospital for an additional mount of time for ongoing IV fluids and rechecking his serum creatinine level, the patient is demanding to be discharged at this time. Given the risk versus benefit of the patient actively withdrawing from alcohol in the hospital and causing further complications, I will comply with his request. He seems to be have the capacity to make decisions at this time, albeit poor ones, and he is expressing that he is not entirely interested in discontinuing alcohol in the future. Since I suspect the patient will most likely leave the hospital and continued drinking, I am not going to provide him with prescription for benzodiazepines as the risk of misuse outweighs the potential benefit, since the patient does not appear to have any interest in stopping his alcohol consumption. He simply wants to "moderate". AA resources and the [facility] location/phone were provided, in case the patient does choose sobriety. DISCHARGE MEDICATIONS: Please see official discharge medication reconciliation sheet in chart, hold metformin, continue amlodipine. DISCHARGE INSTRUCTIONS: Please follow up with primary care provider next week and repeat labs to be drawn at that time.
[2018-05-22] MEDS ORDERED: THIAMINE HCL 100 MG TAB PO SCH (09:00)
== END 2018-05-19 09:37 | disposition home or self-care (01) ==
LOC: F1N 15:09
PROVIDERS: ADMIT Internal Medicine; ATTEND Internal Medicine
DX: G31.2 Degeneration of nervous system due to alcohol (principal); K70.10 Alcoholic hepatitis without ascites; N17.9 Acute kidney failure, unspecified; E11.9 Type 2 diabetes mellitus without complications
CPT/HCPCS: 97165-GO; G0378; G0480; J1644; J2060; J3411

== ENCOUNTER 2018-08-14 17:18 | Emergency (ER) | payer MEDICAID ==
[2018-08-14] MEDS ORDERED: LORazepam 2 MG/ML INJ IVP ONE (17:27)
--- NOTE | 2018-08-14 17:29 | EDPHY ---
H & P Time Seen by Provider: 08/14/18 17:21 HPI/ROS: CHIEF COMPLAINT: "I do not feel right" HISTORY OF PRESENT ILLNESS: The patient presents the ED by paramedics with a sense of general malaise and fatigue. The patient is a chronic alcoholic. He was experiencing symptoms of alcohol withdrawal earlier today with tremor and restlessness. He reportedly had 6 shots of rum and and continued to feel poorly which prompted his telephone call to the paramedics. The patient reports he has been compliant with his metformin and antihypertensive medications. The patient denies any history of fall or trauma. The patient reports binge drinking. He last drank yesterday. The patient does have a history of hallucinations from alcohol withdrawal in the past. He denies any hallucinations currently. The patient denies any acute abdominal pain, history of falling, fever or vomiting. REVIEW OF SYSTEMS: A comprehensive 10 point review of systems is otherwise negative aside from elements mentioned in the history of present illness. Source: Patient Exam Limitations: No limitations - Personal History Tetanus Vaccine Date: 2010 - Medical/Surgical History Hx Asthma: No Hx Chronic Respiratory Disease: No Hx Diabetes: Yes Hx Cardiac Disease: Yes Hx Renal Disease: Yes Hx Cirrhosis: Yes Hx Alcoholism: Yes Hx HIV/AIDS: No Hx Splenectomy or Spleen Trauma: No Other PMH: DM2 , HTN. etoh - Social History Smoking Status: Former smoker - Physical Exam Exam: General Appearance: Obese male, somewhat disheveled, alcohol on breath Eyes: Pupils equal and round no pallor or injection ENT, Mouth: Mucous membranes moist Respiratory: There are no retractions, lungs are clear to auscultation Cardiovascular: Tachycardic Gastrointestinal: Protuberant, no focal tenderness Neurological: Slight tremor, 5/5 strength all 4 extremities Skin: Warm and dry, no rashes Musculoskeletal: Neck is supple nontender Extremities: symmetrical, full range of motion Psychiatric: Patient is oriented X 3, there is no agitation, denies suicidal or homicidal ideation Constitutional: Initial Vital Signs Temperature (C) 36.7 C 08/14/18 17:30 Heart Rate 126 H 08/14/18 17:30 Respiratory Rate 20 08/14/18 17:30 Blood Pressure 196/127 H 08/14/18 17:30 O2 Sat (%) 97 08/14/18 17:30 O2 Delivery Mode Room Air Allergies/Adverse Reactions: caffeine Allergy (Verified 05/30/18 10:40) Other-Enter Comments Home Medications: Medication Instructions Recorded Cholecalciferol Vit D3 [Vitamin D3 1,000 units PO DAILY 03/06/17 (*)] amLODIPine BESYLATE [Norvasc 5 mg 5 mg PO DAILY #30 tab 03/10/17 (*)] Metformin 1000 mg 08/14/18 Medical Decision Making - Diagnostics EKG Interpretation: EKG: Complete interpretation has been separately recorded in the [facility] archive. Summary impression: Sinus tachycardia, rate 113 ED Course/Re-evaluation: The patient presents to the ED with a sensation of dysphoria likely secondary to mild alcohol withdrawal. The patient did have 6 shots prior to arrival. The patient did receive 1 mg of IV Ativan. The patient received IV fluids in the emergency department. Laboratory testing is unremarkable. The patient is not vomiting. I re-evaluated the patient at 8:00 p.m.. The patient is sleeping comfortably in the room. I had a discussion with him about his presentation today. He would like to go home. He was offered transfer [facility] for further management of mild alcohol withdrawal however he has declined that. The patient has no complaints of chest pain or shortness of breath. He is noted to have chronic renal insufficiency with a baseline creatinine of 1.5. The patient will be instructed to return to the ED for the development of any worsening symptoms such as chest pain, difficulty breathing, headache, numbness , weakness or other concerns. Patient is also been provided the outpatient contact number for the [facility]. Differential Diagnosis: Differential diagnosis considered includes dehydration, metabolic abnormality, alcohol intoxication, alcohol withdrawal. - Data Points Laboratory Results: Laboratory Results 08/14/18 17:30 08/14/18 17:30 08/14/18 08/14/18 17:30 17:30 WBC 6.08 10^3/uL 10^3/uL (3.80-9.50) RBC 5.32 10^6/uL 10^6/uL (4.40-6.38) Hgb 17.0 g/dL g/dL (13.7-17.5) Hct 48.9 % % (40.0-51.0) MCV 91.9 fL fL (81.5-99.8) MCH 32.0 pg pg (27.9-34.1) MCHC 34.8 g/dL g/dL (32.4-36.7) RDW 13.6 % % (11.5-15.2) Plt Count 191 10^3/uL 10^3/uL (150-400) MPV 10.0 fL fL (8.7-11.7) Neut % (Auto) 43.1 % % (39.3-74.2) Lymph % (Auto) 47.0 % H % (15.0-45.0) Gibson % (Auto) 9.2 % % (4.5-13.0) Eos % (Auto) 0.2 % L % (0.6-7.6) Baso % (Auto) 0.3 % % (0.3-1.7) Nucleat RBC Rel Count 0.0 % % (0.0-0.2) Absolute Neuts (auto) 2.62 10^3/uL 10^3/uL (1.70-6.50) Absolute Lymphs (auto) 2.86 10^3/uL 10^3/uL (1.00-3.00) Absolute Monos (auto) 0.56 10^3/uL 10^3/uL (0.30-0.80) Absolute Eos (auto) 0.01 10^3/uL L 10^3/uL (0.03-0.40) Absolute Basos (auto) 0.02 10^3/uL 10^3/uL (0.02-0.10) Absolute Nucleated RBC 0.00 10^3/uL 10^3/uL (0-0.01) Immature Gran % 0.2 % % (0.0-1.1) Immature Gran # 0.01 10^3/uL 10^3/uL (0.00-0.10) Sodium 140 mEq/L mEq/L (135-145) Potassium 4.2 mEq/L mEq/L (3.3-5.0) Chloride 106 mEq/L mEq/L (97-110) Carbon Dioxide 23 mEq/l mEq/l (22-31) Anion Gap 11 mEq/L mEq/L (6-14) BUN 26 mg/dL H mg/dL (7-23) Creatinine 1.5 mg/dL H mg/dL (0.7-1.3) Estimated GFR 48 Glucose 262 mg/dL H mg/dL (70-100) Calcium 8.5 mg/dL mg/dL (8.5-10.4) Ethyl Alcohol 271 mg/dL H mg/dL (0-10) Medications Given: Discontinued Medications Lorazepam (Ativan Injection) 1 mg IVP EDNOW ONE Stop: 08/14/18 17:28 Last Admin: 08/14/18 17:35 Dose: 1 mg Departure - Departure Disposition: Home, Routine, Self-Care Clinical Impression: Alcohol abuse Condition: Good Instructions: Abuse of Alcohol (ED) Additional Instructions: 1. You have been offered a transfer to the [facility] for further management of alcohol withdrawal and declined. You have been given the contact information should you reconsider your decision. They are open 24 hr a day and do offer medical treatment for alcohol withdrawal. 2. Please return to the ED immediately for any worsening symptoms such as chest pain, difficulty breathing or fever. 3. Please follow-up with your primary care provider as scheduled. Referrals: [facility] [Outside] - As per Instructions
[2018-08-14 17:51] LABS: PLATELET COUNT 191 10^3/uL (150-400)
--- NOTE | 2018-08-14 18:36 | CPEKG ---
Test Reason : OPEN Blood Pressure : / mmHG Vent. Rate : 113 BPM Atrial Rate : 114 BPM P-R Int : 154 ms QRS Dur : 080 ms QT Int : 306 ms P-R-T Axes : 029 008 043 degrees QTc Int : 420 ms Sinus tachycardia Ventricular premature complex Confirmed by Sorin Martin ([id number]) on 08/14/2018 6:35:46 PM Referred By: Confirmed By:Sorin Martin
[2018-08-14 20:10] VITALS: BP 163/110
== END 2018-08-14 20:10 | disposition home or self-care (01) ==
LOC: EDUNIT#
DX: F10.230 Alcohol dependence with withdrawal, uncomplicated (principal); I10 Essential (primary) hypertension; E11.9 Type 2 diabetes mellitus without complications; Z79.84 Long term (current) use of oral hypoglycemic drugs
CPT/HCPCS: 96374; G0480; J2060

== ENCOUNTER 2018-08-16 09:14 | Emergency (ER) | payer MEDICAID ==
[2018-08-16] MEDS ORDERED: NS 1,000 ML IV ONE (09:45)
[2018-08-16] MEDS ORDERED: DIAZEPAM 5 MG/ML 1 ML SYR IVP ONE (09:50)
--- NOTE | 2018-08-16 09:55 | EDPHY ---
H & P Time Seen by Provider: 08/16/18 09:44 HPI/ROS: HPI Feeling anxious, guilty after smoking crack cocaine. 62-year-old male on foot. The patient has a history of alcohol abuse and drug abuse. He reports that he was smoking crack cocaine last night. He reports he has also been drinking alcohol on a regular basis. He was drinking last night as well as some this morning. Last drink was a few hours ago. He complains of "not feeling right". He describes feeling a sense of anxiousness and feeling guilty. Denies shortness of breath. He reports he has not been able to sleep in the last couple of nights. Denies chest pain. ROS: Constitutional: No fever, no chills. As above. Eyes: No discharge. No changes in vision. ENT: No sore throat. No nasal congestion or rhinorrhea. Respiratory: No cough. No shortness of breath. Cardiac: No chest pain, no palpitations. Gastrointestinal: No abdominal pain, no vomiting, no diarrhea. Genitourinary: No hematuria. No dysuria or increased frequency with urination. Musculoskeletal: No back pain. No neck pain. No myalgias or arthralgias. Skin: No rashes. Neurological: No headache. No focal weakness or altered sensation. Past medical history: Type 2 diabetes, hypertension, substance abuse. Social history: Smoker. Alcohol abuse, polysubstance abuse, here by himself. Physical Exam: General Appearance: Alert, mildly anxious but not in distress. This patient is responding to questions appropriately and in full sentences. This patient appears well-hydrated and well-nourished. Eyes: Pupils equal and round no pallor or injection. No lid edema, erythema or injection. Respiratory: There are no retractions, lungs are clear to auscultation anterior with good air movement bilaterally. Cardiovascular: Regular rate and rhythm. Tachycardia. No murmur appreciated. Gastrointestinal: Abdomen is soft and nontender, no masses, bowel sounds normal. No focal tenderness at McBurney's point. No Witt sign. Neurological: Motor sensory function is grossly intact. Cranial nerves are normal. Gait is normal. Skin: Warm and dry, no rashes. Musculoskeletal: Neck is supple and nontender. Extremities are symmetrical. All joints range without pain or impingement. Psychiatric: No agitation. No depression. Database: EKG: EKG time is 10:07 a.m.; EKG shows a narrow complex normal sinus tachycardia with a ventricular rate of 109. The OR, QRS, QT intervals are within normal limits. There are no ST-T wave changes indicative of ischemic or injury pattern. No evidence of right heart strain. Interpreted by me. Imaging: Chest x-ray AP portable; cardiomegaly, the mediastinal silhouette is otherwise unremarkable. No evidence of infiltrate or pneumothorax. No acute cardiopulmonary disease process noted. Interpreted by me. Procedures: Emergency department course: Triage vital signs reviewed. He is moderately hypertensive. He is tachycardic at 119. 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 IV was placed. He will be started on IV normal saline with 500 cc to 1 L to be given over the next hour. He will also be given 5 mg of IV Valium for possible mild sympathomimetic toxidrome verses alcohol withdrawal. This will be repeated as needed. 11:50 a.m., the patient was re-evaluated. He is resting comfortably at this time. He is not tremulous. He still borderline tachycardic at 90-100. I offered him another dose of Valium but he declined this. He stated that he felt well and is now requesting discharge. His emergency department workup and results were discussed with him. I explained that he is fairly dehydrated and I explained my concern about his kidneys. I will have him follow up with his primary care physician for re-evaluation by the end of this week. He is in agreement with this plan. Return to emergency department precautions were discussed with him. He was up and ambulatory without difficulty. He understands the importance of his follow-up. All of his questions were answered. He was discharged from the emergency department in good condition. Differential Diagnosis: The differential diagnosis on this patient includes but is not limited to sympathomimetic toxicity, polysubstance abuse, alcohol withdrawal, anxiety reaction. Pulmonary embolism, acute coronary syndrome unlikely. This represents a partial list of diagnoses considered. These considerations are based on history, physical exam, past history, reassessment and diagnostic testing. Smoking Status: Former smoker Constitutional: Initial Vital Signs Temperature (C) 36.7 C 08/16/18 09:18 Heart Rate 119 H 08/16/18 09:18 Respiratory Rate 16 08/16/18 09:18 Blood Pressure 162/105 H 08/16/18 09:18 O2 Sat (%) 97 08/16/18 09:18 O2 Delivery Mode Room Air Allergies/Adverse Reactions: No Known Allergies Allergy (Unverified 08/16/18 09:17) Home Medications: Medication Instructions Recorded Cholecalciferol Vit D3 [Vitamin D3 1,000 units PO DAILY 03/06/17 (*)] amLODIPine BESYLATE [Norvasc 5 mg 5 mg PO DAILY #30 tab 03/10/17 (*)] Metformin 1000 mg 08/14/18 Medical Decision Making - Data Points Laboratory Results: Laboratory Results 08/16/18 10:00 08/16/18 10:00 Medications Given: Discontinued Medications Diazepam (Valium) 5 mg IVP EDNOW ONE Stop: 08/16/18 09:51 Last Admin: 08/16/18 10:06 Dose: 5 mg Sodium Chloride (Ns) 1,000 mls @ 0 mls/hr IV EDNOW ONE; Wide Open PRN Reason: Protocol Stop: 08/16/18 09:46 Last Admin: 08/16/18 10:04 Dose: 1,000 mls Point of Care Test Results: Chemistry 08/16/18 10:01 POC Troponin I 0.00 ng/mL ng/mL (0.00-0.08) Departure - Departure Disposition: Home, Routine, Self-Care Clinical Impression: Alcohol abuse, Cocaine abuse, Dehydration Condition: Good Instructions: Dehydration (ED), Abuse of Alcohol (ED) Additional Instructions: Read and follow provided instructions. Do not do cocaine or other street drugs. Follow-up with your primary care physician in 2-3 days for re-evaluation. You need to have your kidney function re-evaluated at this time. Drink lots of fluids, and keep yourself well hydrated. Return to the emergency department for worsening symptoms or other serious concerns. Referrals: Sean Frye MD [Primary Care Provider] - As per Instructions
[2018-08-16 10:10] LABS: PLATELET COUNT 183 10^3/uL (150-400)
[2018-08-16 12:00] VITALS: BP 113/91
--- NOTE | 2018-08-16 15:04 | CPEKG ---
Test Reason : OPEN Blood Pressure : / mmHG Vent. Rate : 109 BPM Atrial Rate : 109 BPM P-R Int : 137 ms QRS Dur : 092 ms QT Int : 330 ms P-R-T Axes : 047 011 046 degrees QTc Int : 445 ms Sinus tachycardia Confirmed by Gerri Goel ([id number]) on 08/16/2018 3:03:25 PM Referred By: Confirmed By:Gerri Goel
== END 2018-08-16 12:00 | disposition home or self-care (01) ==
DX: F10.10 Alcohol abuse, uncomplicated (principal); F14.10 Cocaine abuse, uncomplicated; E86.0 Dehydration; E11.9 Type 2 diabetes mellitus without complications; I10 Essential (primary) hypertension; F17.210 Nicotine dependence, cigarettes, uncomplicated
CPT/HCPCS: 84484-PO; 96374; J3360